=== PATIENT | male | born 1995 | race Two or more races ===

== ENCOUNTER 2021-02-04 04:09 | Inpatient (IN) | payer OTHER ==
[~2021-02-04] VITALS: Ht 175.3 cm; Wt 81.6 kg
--- NOTE | 2021-02-04 04:15 | NUR ---
PATIENT CAME TO THE ER [employer] AND [employer] FOR OVERDOSE ON UNKNOWN SUBSTANCE. PATIENT HAD PIPE IN POCKET. PER RA REPORT, PATIENT WAS GIVEN 4MG OF NARCAN NASALLY. PATIENT ADMITS TO SMOKING METH. PATIENT IS SOMNOLENT AND ABLE TO STATE NAME AND BIRTHDATE. PATIENT IS BREATHING EVENLY AND UNLABORED ON 15L OF NONBREATHER. PATIENT IS CONNECTED TO THE BUILDING MAINTENANCE WORKER.
[2021-02-04] MEDS ORDERED: LIDOCAINE 2% JEL UROJET 10 ML MM ONE ×2 (04:21→04:30)
[2021-02-04] MEDS ORDERED: NALOXONE PREFILLED SYRINGE 2 MG/2 ML SYRINGE ONE (04:23)
[2021-02-04] MEDS ORDERED: NALOXONE HCL 4 MG in IV NS 0.9% 240 ML IV PRN (04:30)
[2021-02-04 04:31] LABS: BASOPHILS # (AUTO) 0.1 /CMM (0.0-0.2); BASOPHILS % (AUTO) 0.4 % (0.0-2.0); EOSINOPHILS % (AUTO) 1.3 % (0.0-6.0); HEMATOCRIT 47 % (39-51); HEMOGLOBIN 15.5 g/dL (13.5-17.5); LYMPHOCYTES # (AUTO) 2.9 /CMM (0.8-4.8); LYMPHOCYTES % (AUTO) 18.1 % (20.0-44.0); MEAN CORPUSCULAR HGB CONC 33 g/dl (31.0-36.0); MEAN CORPUSCULAR VOLUME 85 fL (80-96); MONOCYTES # (AUTO) 1.4 /CMM (0.1-1.30); MONOCYTES % (AUTO) 8.9 % (2.0-12.0); NEUTROPHILS # (AUTO) 11.5 /CMM (1.8-8.9); NEUTROPHILS % (AUTO) 71.3 % (43.0-81.0); PLATELET COUNT (AUTO) 295 /CMM (150-450); RED BLOOD CELL COUNT(AUTO) 5.51 MIL/uL (4.5-6.0); WHITE BLOOD COUNT (AUTO) 16.1 K/uL (4.3-11.0)
[2021-02-04 04:39] LABS: CARBON DIOXIDE 27 mmol/L (21-32); CHLORIDE 99 mmol/L (98-107); CREATININE 1.5 mg/dL (0.6-1.3); GLUCOSE 227 mg/dL (74-106); POTASSIUM 3.4 mmol/L (3.5-5.1); SODIUM SERUM 138 mmol/L (136-145); UREA NITROGEN, BLOOD 26 mg/dL (7-18)
--- NOTE | 2021-02-04 04:42 | NUR ---
PATIENT IS TAKEN TO CT. AND XRAY
[2021-02-04 04:44] LABS: BILIRUBIN,URINE Negative (NEGATIVE); COLOR,URINE YELLOW (YELLOW); LEUKOCYTE ESTERASE ,URINE Negative (NEGATIVE); NITRITE, URINE Negative (NEGATIVE); PROTEIN,URINE Negative (NEGATIVE); UGLUCOSE Negative (NEGATIVE); UROBILINOGEN,URINE 0.2 EU/dL (0.2)
[2021-02-04 04:45] LABS: ALANINE AMINOTRANSFERASE 37 U/L (12-78); ALBUMIN 4.4 g/dL (3.4-5.0); ALCOHOL, BLOOD < 3 mg/dL (0-0); ALKALINE PHOSPHATASE 76 U/L (46-116); ASPARTATE AMINOTRANSFERASE 29 U/L (15-37); BILIRUBIN,DIRECT 0.1 mg/dL (0.0-0.2); BILIRUBIN,TOTAL 0.2 mg/dL (0.2-1.0); TOTAL PROTEIN, SERUM 7.9 g/dL (6.4-8.2)
[2021-02-04 04:46] LABS: ACETAMINOPHEN 0 ug/ml (10-30)
--- NOTE | 2021-02-04 05:32 | NUR ---
PATIENT IS AWAKE. PATIENT IS NOT PULLING OFF EQUIPMENTS. PER MD'S ORDER PATIENT WILL BE REMOVED OFF OF RESTRAINTS.
--- NOTE | 2021-02-04 06:01 | NUR ---
MD GOODEN ORDERED TO STOP NALOXONE TO SEE PATIENT'S REACTION.
--- NOTE | 2021-02-04 06:29 | NUR ---
PATIENT IS ASLEEP. EASILY AROUSABLE. BREATHING EVENLY AND UNLABORED ON ROOM AIR. CONNECTED TO THE MONITOR. SITTER AND MOTHER AT BEDSIDE. CALL LIGHT IS WITHIN REACH. WILL CONTINUE TO MONITOR THE PATIENT CLOSELY.
--- NOTE | 2021-02-04 07:15 | NUR ---
REPORT GIVEN TO BROOKE RN FOR RADHA.
--- NOTE | 2021-02-04 10:15 | NUR ---
"Patient Financial Services Specialist consult: access services assistant consult requested for overdose. Patient is a 25-year-old, male. SW met with patient at his bedside in the emergency department. Patients mother, Marissa Novoa, , was at the patients bedside. Patient was alert and oriented x2, name and year. Patient presented lethargic. Per chart, patient was brought in from a motel by ambulance and [employer] on 02/04/21 for an overdose. Patient was unable to provide adequate information to complete assessment but was briefly able to answer yes or no to questions. Patient was unable to stay fully awake. SW was unable to assess patients current suicidal ideation. Patients mother Marissa was able to provide SW with collateral information. Per patients mother, patient is currently homeless and has been homeless for months. Patient is currently receiving SSDI. Marissa stated that the patient has a history of cannabis and amphetamine use. Per toxicology report during this admission, patient is positive for amphetamine and cannabis. Patient has a history of Schizoaffective Disorder and is currently receiving an IM injection 1x/month from a clinic in [facility]. Marissa stated that she provides the patient with transportation to the clinic. Marissa stated that the patient has a history of suicidal ideation and has been admitted to inpatient psychiatric hospitals, multiple times. REYNALDO was unable to provide the patient with homeless and substance use resources and have him sign homeless waiver. REYNALDO filed homeless and substance use resources and homeless waiver in the patients chart and notified ED nursing staff development coordinator. PLAN: REYNALDO will follow up with the patient later to assess suicidal ideation and discuss discharge plans. Substance use resources provided included: [facility] Substance Abuse Self-Helpline ([facility]) ; [facility] [address] [facility] [place] [address] ; [facility] [address] [facility] [address] ; [facility] [address] [facility] [address] ; [facility] [address] [facility] [address] ; [facility] [address] [facility] [phone] ; [facility]; [facility] [place]; [facility] [place]; Alcoholics Anonymous -sfv Year-round shelters: [place] [address] [place] [address] ; [facility] [place] [address] [place] [address]; [facility] [facility]. [facility] [address] SPA 4 | [facility] Recreation [place] Provider: First to Serve Address: [address], [address] # of Beds: 48 Population Served: [facility] Provider: First to Serve Address: [address] [facility], [address] # of Beds: 73 Population Served: [facility] 6 | [facility] Provider: [facility] Last Address: [address] [facility], [address] # of Beds: 63 Population Served: [facility] 3 | [facility] Provider: [facility] [place] Address: [address] [facility], [address] # of Beds: 75 Population Served: [facility] 8 | [facility] Provider: [facility] [place] Address: [address] [facility], [address] # of Beds: 80 Population Served: [facility] 1 | [facility] Provider: [facility] [place] Address: [address] [facility], [address] # of Beds: 85 Population Served: [facility] 2 | [facility] Provider: [facility] [place] Address: Confidential (please call for location) # of Beds: 52 Population Served: [facility] 4 | [facility] Provider: [facility] Address: [address] [facility], [address] # of Beds: 49 Population Served: [facility] Provider: First To Serve Address: [address] [place] [address], [address] # of Beds: 27 Population Served: [facility]: [facility]: [address] [place] [address]. [place] ; [facility] [address] [facility] ; [facility] [address] [facility] . Food Resources: [facility] at [facility]- [address] [place]; Meet Each Need with Dign[facility] ([facility]) [address] [facility] [place]; [facility] [address] [facility]; [facility] [address] [facility]. Mental Health resources provided: [facility] [address] [place], [place] [phone] ; [facility] Mental Health [place] [address] [facility] [address], [place], [place] [id number] ; [facility] [address] [place] [address] ; [facility] [address] [place], [place] [address] Healthcare Clinics: [facility] [address] [facility], [address] [place]. [place] ; [facility] [address] [facility] [address] [place] [address]; [facility] [address] [facility]. [place] [phone] Counseling--Outpatient [facility] [address] [facility], [address] [place], [place] [phone] (Specializes in in-depth psychotherapy for emotional distress: anxiety, depression, interpersonal conflicts, life transitions, childhood abuse) PSYCHIATRIC OUTPATIENT SERVICES [facility] Partial Hospitalization and Intensive Outpatient Program (Managed Care and [place] Only) [address] [address] [facility] [address] [facility] Partial Hospitalization and Outpatient Program [address] [place], [place] [id number] [facility] Partial Hospitalization and Outpatient Program [address] [place], [place] [phone] [facility] [address] [place] [address] [facility] Partial Hospitalization and Outpatient Program [address] [place], [place] [phone] "
[2021-02-04] MEDS ORDERED: MAGNESIUM HYDROXIDE 30 ML UDC PO PRN (12:30)
[2021-02-04] MEDS ORDERED: ONDANSETRON HCL/PF 4 MG/2 ML VIAL IVP PRN (12:30)
[2021-02-04] MEDS ORDERED: IV D5W 1,000 ML IV PRN (12:30)
[2021-02-04] MEDS ORDERED: Z GUARD REMEDY 2 OZ OINT TP PRN (12:30)
[2021-02-04] MEDS ORDERED: MAG HYDROX/AL HYDROX/SIMETH 30 ML UDC PO PRN (12:30)
[2021-02-04] MEDS ORDERED: ACETAMINOPHEN 325 MG TABLET PO PRN (12:30)
--- NOTE | 2021-02-04 12:30 | NUR ---
Concrete Floor Installer note: SW followed up with patient to assess for current suicidal ideation. Patient denied suicidal ideation. SW was notified by ED staff mine warfare officer that patient will be admitted medically. SS will remain available as needed.
--- NOTE | 2021-02-04 12:46 | NUR ---
The patient alert and oriented to x2. Denies pain. In no apparent distress. Respiration regular and unlabored. Will continue to monitor the patient.
[2021-02-04] MEDS ORDERED: LORAZEPAM INJ 2 MG/ML VIAL IV ONE (17:00)
[2021-02-04] MEDS ORDERED: LORAZEPAM INJ 2 MG/ML VIAL ONE (17:16)
[2021-02-04] MEDS ORDERED: CEFTRIAXONE 1 G in IV D5W 50 ML IV SCH (17:30)
--- NOTE | 2021-02-04 17:50 | NUR ---
REPORT GIVEN TO NURSE CERVANTES.
--- NOTE | 2021-02-04 19:00 | NUR ---
The patient is transfered to assigned room in stable condition and per policy.
[2021-02-04 19:23] VITALS: BP 136/76
--- NOTE | 2021-02-04 19:30 | NUR ---
RN NOTES RECEIVED PT FROM AM SHIFT FOR COMPLETION AND CONTINUATION OF ADMISSION. RECEIVED PT SLEEPING IN BED; ON ROOM AIR WITH RESPIRATIONS EVEN AND UNLABORED. IV ACCESS ON R AC#16; INTACT, PATENT AND FLUSHING WELL. PT'S MOM AT BEDSIDE. COMPREHENSIVE PHYSICAL ASSESSMENT AND PATIENT CARE DONE. CALL LIGHT WITHIN REACH, SAFETY MEASURES AND ISOLATION PRECAUTION IN PLACE, WILL CONTINUE MONITOR AND ASSESS THROUGHOUT THE SHIFT. WILL CARRY OUT MD ORDERS ACCORDINGLY. STRATEGIC ANALYST MADE AWARE.
--- NOTE | 2021-02-04 19:46 | NUR ---
RN NOTES SECURED ORDER FROM DAREK FARR FOR PT'S AGITATION AND RESTLESSNESS ORDER: ATIVAN 2MG IV Q4H PRN. WILL CARRY OUT ORDERED. WASHING MACHINE LOADER MADE AWARE. WILL CONTINUE TO MONITOR AND ASSESS THROUGHOUT THE SHIFT.
[2021-02-04 20:00] VITALS: BP 136/76
[2021-02-04] MEDS ORDERED: LORAZEPAM INJ 2 MG/ML VIAL IV PRN (20:00)
--- NOTE | 2021-02-05 | NUR ---
RN NOTES PT REFUSED VITAL SIGNS TO BE TAKEN. RN ACKNOWLEDGED. MANAGER INTERN MADE AWARE.
[2021-02-05 04:00] VITALS: BP 110/71
--- NOTE | 2021-02-05 04:00 | NUR ---
RN NOTES PATIENT REMAINS IN NO ACUTE RESPIRATORY DISTRESS AT THIS TIME, NO CHANGES TO CONDITION/STATUS. MEDIA RELATIONS MANAGER WELL AWARE. WILL CONTINUE TO MONITOR AND REASSESS FOR ANY CHANGES THROUGHOUT THE SHIFT
--- NOTE | 2021-02-05 04:30 | NUR ---
RN NOTES PT NOTED TO HAVE EPISODE OF MILD AGITATION AND RESTLESSNESS, PROVIDED CALM ENVIRONMENT AND PREVENTED ARGUMENT WITH PT. ABLE TO MGT PATIENT'S AGITATION HEARING AID TECHNICIAN MADE AWARE. WILL CONTINUE TO MONITOR AND ASSESS THROUGHOUT THE SHIFT.
--- NOTE | 2021-02-05 05:00 | NUR ---
RN NOTES NOTED PT'S IV ACCESS TO BE LEAKING, PT REFUSED TO HAVE IT CHANGED AND REMOVED. PT ALSO REMOVED TELE MONITOR'S BOX AND LEADS. EXPLAINED RISK AND BENEFITS BUT PT'S STILL REFUSED. RN ACKNOWLEDGED. MINE SUPERVISOR MADE AWARE. WILL ENDORSE TO AM SHIFT ABOUT THIS CONCERN. WILL CONTINUE TO MONITOR AND ASSESS.
--- NOTE | 2021-02-05 06:56 | NUR ---
RN CLOSING NOTE: PATIENT REMAINS IN ROOM IN NO SIGNS OF RESPIRATORY DISTRESS, PATIENT STILL ON ROOM AIR; TOLERATING WELL SATURATING @ >95% SP02. SAFETY MEASURES IMPLEMENTED, BED IN LOWEST POSITION, LOCKED, SIDE RAILS UP, CALL LIGHT WITHIN REACH. ALL NEEDS AND ORDERS ADDRESSED DURING THE SHIFT. ALL DUE MEDS GIVEN ORDERED & SCHEDULED ; PATIENT TOLERATED WELL. PATIENT KEPT CLEAN AND COMFORTABLE WITHIN THE SHIFT. PATIENT ENDORSED TO INCOMING SHIFT RN WITH STABLE VITAL SIGN AND FOR CONTINUITY OF CARE, WILL ALSO INFORM AM SHIFT RN AND AM SHIFT LOCOMOTIVE BOILERMAKER THAT PT REFUSED TO HAVE HIS IV ACCESS CHANGED AND TOUCHED, IV FLUIDS NOT RUNNING AT THIS TIME AND TELE MONITOR NOT ON HOOKED PT REFUSED.
[2021-02-05 07:10] LABS: CALCIUM, SERUM 8.5 mg/dL (8.5-10.1); POTASSIUM 3.6 mmol/L (3.5-5.1)
[2021-02-05 07:22] LABS: THYROID STIMULATING HORMONE 3.974 uIU/mL (0.358-3.74)
[2021-02-05 07:26] LABS: BASOPHILS % (AUTO) 0.3 % (0.0-2.0); EOSINOPHILS % (AUTO) 0.5 % (0.0-6.0); HEMATOCRIT 45 % (39-51); LYMPHOCYTES # (AUTO) 1.1 /CMM (0.8-4.8); LYMPHOCYTES % (AUTO) 12.5 % (20.0-44.0); MEAN CORPUSCULAR HGB CONC 34 g/dl (31.0-36.0); MEAN CORPUSCULAR VOLUME 85 fL (80-96); MONOCYTES # (AUTO) 0.9 /CMM (0.1-1.30); MONOCYTES % (AUTO) 9.9 % (2.0-12.0); NEUTROPHILS # (AUTO) 6.7 /CMM (1.8-8.9); NEUTROPHILS % (AUTO) 76.8 % (43.0-81.0); PLATELET COUNT (AUTO) 236 /CMM (150-450); RED BLOOD CELL COUNT(AUTO) 5.26 MIL/uL (4.5-6.0); WHITE BLOOD COUNT (AUTO) 8.7 K/uL (4.3-11.0)
[2021-02-05] MEDS ORDERED: PANTOPRAZOLE 40 MG VIAL IV SCH (09:00)
--- NOTE | 2021-02-05 09:47 | NUR ---
PATIENT WAS AGITATED, THROWN CUP OF WATER ON THE GRAND AND STATED "I WANT LEAVE HERE!" PATIENT SIGNED ON AMA AND LEFT FACILITY. PRIMARY MD AND MOTHER/OLGA MAILS MADE AWARE. REMOVED IV AND ID BAND BEFORE PATIENT LEAVE. INCIDENT REPORT DONE.
== END 2021-02-05 08:49 | disposition left against medical advice (07) | DRG 812 ==
LOC: ER 04:09 → TRANSITION 16:58 → TELE1 18:15
PROVIDERS: ADMIT Registered Nurse; ATTEND Registered Nurse
DX: T43.621A Poisoning by amphetamines, accidental (unintentional), initial encounter (principal); R40.2342 Coma scale, best motor response, flexion withdrawal, at arrival to emergency department; R40.2222 Coma scale, best verbal response, incomprehensible words, at arrival to emergency department; G92 Toxic encephalopathy; N17.9 Acute kidney failure, unspecified; T40.7X1A Poisoning by cannabis (derivatives), accidental (unintentional), initial encounter; T43.501A Poisoning by unspecified antipsychotics and neuroleptics, accidental (unintentional), initial encounter; Y92.89 Other specified places as the place of occurrence of the external cause; D72.829 Elevated white blood cell count, unspecified; E87.6 Hypokalemia; F31.9 Bipolar disorder, unspecified; F25.9 Schizoaffective disorder, unspecified; Z59.0 Homelessness; Z91.19 Patient's noncompliance with other medical treatment and regimen; F90.9 Attention-deficit hyperactivity disorder, unspecified type; Z20.822 Contact with and (suspected) exposure to COVID-19; F19.188 Other psychoactive substance abuse with other psychoactive substance-induced disorder; R40.2142 Coma scale, eyes open, spontaneous, at arrival to emergency department
CPT/HCPCS: 36415; 70450-TC; 71045-TC; 80048-TC; 80061-TC; 80076-TC; 82140-TC; 82962-TC; 83735-TC; 84100-TC; 84443-TC; 85025-TC; 87081-TC; C9113; C9803; G0378; G0480; J0696; J2060; J2310; J3490; J7030; J7050; J7060; J7070

== ENCOUNTER 2021-02-16 17:42 | Emergency (ER) | payer OTHER ==
[~2021-02-16] VITALS: Ht 175.3 cm; Wt 81.6 kg
--- NOTE | 2021-02-16 18:06 | NUR ---
[employer] & [employer], AT THE [employer] BEING COMBATIVE, VERSED 5MG GIVEN CENTRAL SUPPLY MANAGER. PT ASLEEP, EASILY AWAKEN BY VERBAL STIMULI & WILL GO BACK TO SLEEP. RR EVEN & UNLABORED. PLACED ON STRETCHER OPERATOR, SR. O2 SAT 98% RA. PT SEEN & EVAL'D BY DR. GUIDRY. [employer] OFFICER AT & WILL CONT TO MONITOR.
[2021-02-16 19:07] VITALS: BP 127/87
--- NOTE | 2021-02-16 19:08 | NUR ---
Patient discharged to [facility] in stable condition. Written and verbal after care instructions given to patient & [employer] officers and verbalizes understanding of instruction.
== END 2021-02-16 19:09 ==
LOC: ER 18:07
DX: S60.511A Abrasion of right hand, initial encounter (principal); F25.9 Schizoaffective disorder, unspecified; Z02.89 Encounter for other administrative examinations; Z93.0 Tracheostomy status; Z93.1 Gastrostomy status; X58.XXXA Exposure to other specified factors, initial encounter; Y93.89 Activity, other specified; Y92.89 Other specified places as the place of occurrence of the external cause; Y99.8 Other external cause status